=== PATIENT | female | born 1985 | race Caucasian/White ===

== ENCOUNTER 2019-03-23 23:24 | Emergency (ER) | payer OTHER ==
[~2019-03-23] VITALS: Ht 167.6 cm; Wt 61.2 kg
[2019-03-23 23:25] VITALS: BP 184/119
[2019-03-23] MEDS ORDERED: IBUPROFEN 800800 M1 PO (23:30)
[2019-03-24] MEDS ORDERED: NORCO 5-325 TA1 EAC1 PO (00:09)
== END 2019-03-24 00:26 | disposition home or self-care (01) ==
LOC: ER 23:24
DX: S82.61XA Displaced fracture of lateral malleolus of right fibula, initial encounter for closed fracture (principal); W00.0XXA Fall on same level due to ice and snow, initial encounter; Y92.89 Other specified places as the place of occurrence of the external cause; Y93.89 Activity, other specified; Y99.8 Other external cause status